=== PATIENT | female | born 1955 | race Caucasian/White ===

== ENCOUNTER 2016-09-06 06:43 | Day surgery (SDC) | payer BC ==
[2016-09-06] MEDS ORDERED: PROPOFOL INJ 200 MG/20 ML VIAL IV ONE (07:20)
[2016-09-06 09:01] VITALS: BP 133/73
--- NOTE | 2016-09-06 13:36 | Operative Report ---
Operative Report DATE OF SURGERY: 09/06/16 Operative Report: The risks, benefits and alternatives of the procedure including risks of bleeding, perforation requiring surgery are explained to the patient detail and informed consents obtained. Patient is placed in a left, lateral decubital position. Timeout is called. Propofol medications administered. A rectal examination was done which did not reveal any masses, tears or fissures. An Olympus videoscope was inserted the patient's rectum. The scope was then gradually advanced all the way to the cecum. The cecum was identified by the usual anatomical landmarks including the ileocecal valve as well as the appendiceal office. Photodocumentation is obtained. Prep is good. Scope is then sequentially pulled back via the rest segments of the colon including the ascending colon, hepatic flexure, transverse colon, splenic flexure, descending colon and finally into the rectosigmoid portions of the colon. Retroflexion maneuvers performed. PREOPERATIVE DIAGNOSIS: Colorectal cancer screening. POSTOPERATIVE DIAGNOSIS: Normal screening colonoscopy. OPERATION: Diagnostic colonoscopy. SURGEON: SERAFIN FRANCISCO ANESTHESIA: LMAC TISSUE REMOVED OR ALTERED: None. COMPLICATIONS: None. ESTIMATED BLOOD LOSS: none. INTRAOPERATIVE FINDINGS: No AVMs, diverticulosis. Colonic mucosa is normal. Normal haustra as well as blood vessel architecture. PROCEDURE: Patient tolerated procedure well. No immediate postprocedure complications are noted. Patient is discharged in good condition. Discharge date 09/06/2016. Discharge diet: Regular. Discharge activity: Regular. 10 year surveillance of be adequate. As needed follow-up.
== END 2016-09-06 08:57 | disposition home or self-care (01) ==
LOC: END 06:43
PROVIDERS: ATTEND Internal Medicine Gastroenterology
PROC: 0DJD8ZZ Inspection of Lower Intestinal Tract, Via Natural or Artificial Opening Endoscopic (ICD-10-PCS; principal; 2016-09-06 08:00)
DX: Z12.11 Encounter for screening for malignant neoplasm of colon (principal); Z88.0 Allergy status to penicillin
CPT/HCPCS: 45378; J2704; 810

== ENCOUNTER → 2018-03-15 | Outpatient (CLI) | payer BC ==
[2018-03-15 08:13] LABS: ABSOLUTE BASOPHILS # (AUTO) 0.1 10^3/uL (0.0-0.2); ABSOLUTE EOSINOPHILS # (AUTO) 0.2 10^3/uL (0.0-0.6); ABSOLUTE MONOCYTES (AUTO) 0.6 10^3/uL (0.1-1.4); ABSOLUTE NEUT (AUTO) 3.5 10^3/uL (1.7-8.2); EOSINOPHILS % (AUTO) 3.4 % (0-6); HEMATOCRIT 39.9 % (36.0-47.0); HEMOGLOBIN 13.7 g/dL (12.0-15.5); LYMPHOCYTES % (AUTO) 31.6 % (13-45); MEAN CORPUSCULAR HEMOGLOBIN 30.1 pg (27.0-33.4); MEAN CORPUSCULAR HGB CONC 34.2 g/dL (32.0-36.0); MEAN CORPUSCULAR VOLUME 88 fl (80-97); MONOCYTES % (AUTO) 9.9 % (3-13); PLATELET COUNT 201 10^3/uL (150-450); RED BLOOD COUNT 4.53 10^6/uL (3.72-5.28); RED CELL DISTRIBUTION WIDTH 13.9 % (11.5-14.0); SEGMENTED NEUTROPHILS % (AUTO) 54.1 % (42-78); TOTAL CELLS COUNTED % (AUTO) 100 %; WHITE BLOOD COUNT 6.5 10^3/uL (4.0-10.5)
[2018-03-15 08:36] LABS: ALANINE AMINOTRANSFERASE 26 U/L (9-52); ALBUMIN 4.3 g/dL (3.5-5.0); ALKALINE PHOSPHATASE 83 U/L (38-126); ANION GAP 8 (5-19); ASPARTATE AMINO TRANSFERASE 20 U/L (14-36); BILIRUBIN,DIRECT 0.5 mg/dL (0.0-0.4); BILIRUBIN,TOTAL 0.7 mg/dL (0.2-1.3); BLOOD UREA NITROGEN 18 mg/dL (7-20); CALCIUM 9.7 mg/dL (8.4-10.2); CARBON DIOXIDE 29 mmol/L (22-30); CHLORIDE 105 mmol/L (98-107); CHOLESTEROL 295.02 mg/dL (0-200); GLUCOSE 104 mg/dL (75-110); POTASSIUM 4.6 mmol/L (3.6-5.0); SODIUM 141.7 mmol/L (137-145); TOTAL PROTEIN 7.2 g/dL (6.3-8.2); TRIGLYCERIDES 206 mg/dL (<150)
[2018-03-15 08:48] LABS: DIRECT LDL 175 mg/dL (<100)
[2018-03-15 08:50] LABS: VLDL CHOLESTEROL 41.2 mg/dL (10-31)
== END ==
LOC: LAB 07:52
PROVIDERS: ATTEND Physician Assistant
DX: Z00.00 Encounter for general adult medical examination without abnormal findings (principal); I10 Essential (primary) hypertension
CPT/HCPCS: 36415; 80053; 80061; 83036; 84436; 84443; 85025

== ENCOUNTER → 2018-05-30 | Outpatient (CLI) | payer BC ==
--- NOTE | 2018-05-30 20:17 | XCELERA REPORT ---
[address] [id number] Transthoracic Echocardiogram Report Name: MIRYAM HORTA Age: 63 yrs Gender: Female : 1955 Patient Status: Outpatient Patient Location: [facility] Study Date: 05/30/2018 09:09 AM Height: 68 in Weight: 170 lb BSA: 1.9 m2 Reason For Study: Ordering Physician: LOCALMD, NO Performed By: Moe Welch Interpretation Summary Poor apical 2 and 4 chamber view prevented calculation of bigeminal LVEF, need TTE with contrast study. Unable to see all LV segments. But LV is definitely enlarged.LVESD 49 mm. AV sclerosis, no stenosis, but mod AR with LVESD 49 mm, but aortic root not appear to be enlarged 34mm. Mild MR kalpesh no MVP, no LA enlargement. Mod TR but upper normal RVSP and normal RH. MMode/2D Measurements & Calculations RVDd: 2.9 cm LVIDd: 6.3 cm FS: 20.2 % Ao root diam: 3.3 cm IVSd: 0.77 cm LVIDs: 5.0 cm EDV(Teich): 200.6 ml LVPWd: 0.84 cm ESV(Teich): 119.4 ml Ao root area: 8.4 cm2 LA dimension: 4.0 cm EF(Teich): 40.5 % Doppler Measurements & Calculations MV E max [place]: MV P1/2t max [place]: Ao V2 max: AI max [place]: 86.9 cm/sec 82.0 cm/sec 180.4 cm/sec 520.7 cm/sec MV A max [place]: MV P1/2t: 49.0 msec Ao max PG: AI max P.4 cm/sec MVA(P1/2t): 4.5 cm2 13.0 mmHg 108.5 mmHg MV E/A: 1.0 MV dec slope: AI dec slope: 172.8 cm/sec2 489.9 cm/sec2 AI P1/2t: MV dec time: 882.5 msec 0.20 sec LV V1 max PG: PA V2 max: PI end-d [place]: TR max [place]: 6.4 mmHg 86.9 cm/sec 98.8 cm/sec 272.8 cm/sec LV V1 max: PA max P.0 mmHg TR max P.9 cm/sec 29.8 mmHg LV dP/dt: 909.0 mmHg/s AV P1/2t-pr_phl: MV P1/2t-pr_phl: 882.5 msec 49.0 msec Left Ventricle The left ventricle is moderately dilated. There is normal left ventricular wall thickness. LVESD 49 mm LVEDD 63mm. Left ventricular systolic function is mildly reduced. Consider additional methods to assess LVEF such as MUGA scan, CTA heart, cardiac MRI, COSTA, etc. if clinically indicated. Contrast study.may help. The transmitral spectral Doppler flow pattern is normal for age. Regional wall motion abnormalities cannot be excluded due to limited visualization. IVS appears dyskinetic due to bigrminal PVC. There is no thrombus. Right Ventricle The right ventricle is grossly normal size. Atria The right atrium is normal. The left atrial size is normal. The interatrial septum is intact with no evidence for an atrial septal defect. Mitral Valve The mitral valve is normal in structure and function. There is no evidence of mitral valve prolapse. There is no mitral valve stenosis. There is a mild amount of mitral regurgitation. Aortic Valve The aortic valve is trileaflet. The aortic valve opens well. The aortic valve is sclerotic and shows some degree of functional abnormality. AV peak velocity upper normal 1.8m/sec. There is no aortic valvular vegetation. There is no aortic valve stenosis. There is a moderate amount of aortic regurgitation. PHT 878ms. Tricuspid Valve The tricuspid is normal in structure and function. There is no tricuspid valve prolapse. There is no tricuspid stenosis. There is a moderate amount of tricuspid regurgitation. Right ventricular systolic pressure is at the upper limits of normal. 27mm +3mm=30mm. Pulmonic Valve The pulmonic valve is not well visualized. Great Vessels The aortic root is normal size. There is aortic root sclerosis/calcification. Effusions Minimal pericardial effusion. I WMSI = 1.92 % Normal = 8 Segments Size X - Cannot 1 - Normal 2 - 3 - Akinetic4 - 1-2 small Interpret Hypokinetic Dyskinetic 3-5 moderate 5 - 6-14 large Aneurysmal 15-16 diffuse : MIKAYLA, NO > Jose Bravo
== END ==
LOC: SP 08:37
PROVIDERS: ATTEND Nurse Practitioner
DX: I35.0 Nonrheumatic aortic (valve) stenosis (principal)
CPT/HCPCS: 93306